=== PATIENT | female | born 1955 | race Caucasian/White ===

== ENCOUNTER → 2017-07-27 | Outpatient (CLI) | payer OTHER ==
[~2017-07-27] MED LIST: CYCL10TA PO; FLOM5CAP PO; OXYB5TAB10 PO; OXYC1TAB23 PO; VITMTA PO
--- NOTE | 2017-07-27 08:50 | REP ---
Clinical: Nephrolithiasis. Comparison: 07/01/2016. Findings: Evaluation for urinary tract calcification is limited due to technique and overlying bowel gas pattern. Intra renal and ureteral calcifications cannot be excluded. Calcifications identified within the pelvis remains stable and consistent with phleboliths. Bowel gas pattern is nonspecific. Skeletal structures demonstrate age-related degenerative changes. Impression: Limited evaluation for urinary tract calcifications. Consider noncontrast CT of the abdomen if necessary. Signed by Dre Mcgraw MD 07/27/2017 08:41 A
== END ==
LOC: M SMT 08:10
PROVIDERS: ATTEND Urology
DX: N20.0 Calculus of kidney (principal)

== ENCOUNTER 2017-10-09 11:28 | Emergency (ER) | payer OTHER | END 2017-10-09 16:18 | disposition home or self-care (01) | LOC: M ED 11:28 | DX: S50.02XA Contusion of left elbow, initial encounter (principal); S39.012A Strain of muscle, fascia and tendon of lower back, initial encounter; S06.0X0A Concussion without loss of consciousness, initial encounter; W00.1XXA Fall from stairs and steps due to ice and snow, initial encounter; Y92.009 Unspecified place in unspecified non-institutional (private) residence as the place of occurrence of the external cause; G47.33 Obstructive sleep apnea (adult) (pediatric); E66.9 Obesity, unspecified; Z88.1 Allergy status to other antibiotic agents; Z88.8 Allergy status to other drugs, medicaments and biological substances; Z88.2 Allergy status to sulfonamides; Z87.442 Personal history of urinary calculi | CPT/HCPCS: 73080 ==

== ENCOUNTER → 2018-02-23 | Outpatient (CLI) | payer OTHER, MEDICARE | LOC: M RAD 09:47 | DX: Z12.31 Encounter for screening mammogram for malignant neoplasm of breast (principal) ==

== ENCOUNTER 2018-06-01 10:21 | Day surgery (SDC) | payer MEDICARE, OTHER ==
[2018-06-01] MEDS: NS 1,000 ML IV (10:30)
[2018-06-01] MEDS ORDERED: PROPOFOL 200 MG/20 ML VIAL As Ordered (11:54)
[2018-06-01] MEDS ORDERED: LIDOCAINE 2% INJ 100 MG/5 ML SDV (FOR ANES.) As Ordered (11:54)
== END 2018-06-01 12:38 | disposition home or self-care (01) ==
LOC: M OPP 10:21
DX: Z12.11 Encounter for screening for malignant neoplasm of colon (principal); Z80.0 Family history of malignant neoplasm of digestive organs; Z86.010 Personal history of colon polyps; D12.3 Benign neoplasm of transverse colon; K57.30 Diverticulosis of large intestine without perforation or abscess without bleeding; Z78.0 Asymptomatic menopausal state; Z87.442 Personal history of urinary calculi; Z98.84 Bariatric surgery status; E66.9 Obesity, unspecified; Z85.828 Personal history of other malignant neoplasm of skin; Z88.1 Allergy status to other antibiotic agents; Z88.8 Allergy status to other drugs, medicaments and biological substances; Z88.2 Allergy status to sulfonamides
CPT/HCPCS: 45380

== ENCOUNTER → 2018-08-07 | Outpatient (CLI) | payer MEDICARE, OTHER | LOC: M SMT 09:45 | DX: N20.0 Calculus of kidney (principal) | CPT/HCPCS: 74018; G0463 ==

== ENCOUNTER → 2018-09-21 | Outpatient (REF) | payer MEDICARE, OTHER ==
[~2018-09-21] MED LIST changes: +ACET650S3 PO; +FLOM0.4C39 PO; -FLOM5CAP PO; +VITA200015 PO; +ZOFR4TAB14 PO
== END ==
LOC: M SFHCWAGY 10:12
PROVIDERS: ATTEND Nurse Practitioner Family
DX: Z12.4 Encounter for screening for malignant neoplasm of cervix (principal); N95.2 Postmenopausal atrophic vaginitis
CPT/HCPCS: G0101; G0123

== ENCOUNTER → 2019-05-02 | Outpatient (CLI) | payer MEDICARE, OTHER ==
[~2019-05-02] MED LIST changes: +E-Z-GAS II EFFERVESCENT PACKET (SODIUM BICARB./CITRIC ACID/SIMETHICONE) As Ordered ONE; +E-Z-HD 98% w/w 340GM SUSP BTL As Ordered ONE; +E-Z-PAQUE 96% w/w SUSP 176GM BTL As Ordered ONE
--- NOTE | 2019-05-03 14:23 | REP ---
Examination Requested: Upper G.I. Series With KUB Reason For Exam: Morbid obesity, dysphasia Upper GI Air Contrast The procedure was performed by MARTHA Kaye, under the direct supervision of Dr. Sahni. The images were reviewed with Dr. Sahni. The store mgr film shows no organomegaly or pathological masses. The intestinal gas pattern appears normal. The patient is status post a gastric band surgery. Liquid barium was given in the erect position as well as liquid barium in the prone oblique position in order to perform a double contrast upper GI examination. The oral and pharyngeal stages of deglutition were unremarkable. Esophageal transport is efficient and there is no esophagitis, stricture, or mucosal ring noted. However tertiary contractions were visualized throughout the exam. There is no hiatal hernia. Gastroesophageal reflux as visualized to the level of the radha. The stomach demonstrates postsurgical changes consistent with the patient's history of gastric banding. The stomach whitley are normally outlined. The rugal folds are smooth and regular. There is no gastritis, neoplasm, ulcer disease noted. The duodenal whitley are normally outlined. The mucosal folds are smooth and regular. There is no duodenitis, peptic ulcer disease, or neoplasm noted. The visualized portion of the proximal small bowel appears normal in course and caliber. Impression: 1. Tertiary contractions visualized throughout the exam. 2. Gastroesophageal reflux to the level of the radha 0.9 minutes of fluoroscopy time was utilized for this procedure. Some fluoroscopic images are performed with last image hold technology. These images require no additional radiation. Reviewed by MARTHA Aldrich 05/03/2019 02:01 P Electronically Signed by Connor Sahni MD 05/03/2019 02:15 P
== END ==
LOC: M RAD 07:50
PROVIDERS: ATTEND Surgery
DX: R13.10 Dysphagia, unspecified (principal); Z98.84 Bariatric surgery status; K21.9 Gastro-esophageal reflux disease without esophagitis

== ENCOUNTER → 2019-08-06 | Outpatient (CLI) | payer MEDICARE, OTHER ==
[~2019-08-06] MED LIST changes: -E-Z-GAS II EFFERVESCENT PACKET (SODIUM BICARB./CITRIC ACID/SIMETHICONE) As Ordered ONE; -E-Z-HD 98% w/w 340GM SUSP BTL As Ordered ONE; -E-Z-PAQUE 96% w/w SUSP 176GM BTL As Ordered ONE
--- NOTE | 2019-08-06 10:09 | REPPI ---
Clinical: Kidney stone. Technique: Two supine views of the abdomen and pelvis. Findings: Evaluation is somewhat limited due to overlying bowel gas pattern and presumed pelvic phleboliths. Small left intrarenal calculus measuring approximately 3 mm suggested. Further urinary tract calcifications cannot be excluded. Bowel gas pattern is nonspecific. Evidence for prior bariatric surgery. No organomegaly. Skeletal structures intact. Impression: Presumed 3 mm nonobstructing left renal calculus. Electronically Signed by Dre Mcgraw MD 08/06/2019 10:01 A
== END ==
LOC: M PLAIMG 09:47
PROVIDERS: ATTEND Nurse Practitioner Family
DX: N20.0 Calculus of kidney (principal)

== ENCOUNTER → 2019-10-05 | Outpatient (CLI) | payer MEDICARE, OTHER ==
--- NOTE | 2019-10-05 15:37 | REP ---
Chest and left rib series: Six views including PA chest. History: Rib contusion. Comparison chest x-ray: April 10, 2016. Findings: There is a lap band device in the left upper quadrant. The lungs are well inflated and clear. Pleural angles are sharp. Heart size is normal. There is no evidence of pneumothorax or hydrothorax. The aorta is somewhat tortuous. Multiple views of the left rib cage demonstrate no bony destructive lesion. No rib fracture is seen. Impression: Negative left rib radiographs. Electronically Signed by Hiro De La O MD 10/05/2019 06:40 P
== END ==
LOC: M WUC 11:16
PROVIDERS: ATTEND Physician Assistant
DX: S20.212A Contusion of left front wall of thorax, initial encounter (principal); W18.30XA Fall on same level, unspecified, initial encounter; Y92.9 Unspecified place or not applicable

== ENCOUNTER → 2020-11-12 | Outpatient (CLI) | payer MEDICARE, OTHER ==
[~2020-11-12] MED LIST changes: +CYCL-707 PO; -CYCL10TA PO
--- NOTE | 2020-11-12 10:16 | REPPI ---
INDICATION: KIDNEY STONES COMPARISON: 08/06/2019, 08/07/2018 TECHNIQUE: Supine view of the abdomen and pelvis. FINDINGS: Catheter again identified overlying the abdomen. Small bilateral intrarenal calculi measuring up to 6 mm in the right kidney and 4 mm in the left kidney are suspected and may warrant further investigation/correlation. The bowel gas pattern is nonspecific. Skeletal structures are grossly intact. Chronic stable calcifications in the pelvis consistent with phleboliths. IMPRESSION: Findings suggesting bilateral nephrolithiasis. <Electronically signed by Dre Mcgraw > 11/12/20 1014
[2020-11-12 17:45] LABS: APPEARANCE, URINE HAZY (CLEAR); BACTERIA, URINE AUTO 1+ (NEGATIVE); BILIRUBIN, URINE AUTO NEGATIVE (NEGATIVE); BLOOD, URINE BLOOD NEGATIVE (NEGATIVE); COLOR, URINE YELLOW (YELLOW); GLUCOSE, URINE (UA) AUTO NEGATIVE (NEGATIVE); KETONE, URINE AUTO NEGATIVE (NEGATIVE); LEUKOCYTE ESTERASE, URINE AUTO NEGATIVE (NEGATIVE); MUCUS, URINE SMALL (NEGATIVE); NITRITE, URINE AUTO NEGATIVE (NEGATIVE); PROTEIN, URINE AUTO NEGATIVE (NEGATIVE); RBC, URINE AUTO 0 /HPF (0-3); SPECIFIC GRAVITY URINE AUTO 1.011 (1.002-1.035); SQUAMOUS EPITHELIAL CELL UR AU 1 /HPF (0-6); UROBILINOGEN, URINE AUTO 0.2 mg/dL (0.0-2.0); WBC, URINE AUTO 1 /HPF (0-3)
== END ==
LOC: M PLAIMG 09:43
PROVIDERS: ATTEND Nurse Practitioner Family
DX: N20.0 Calculus of kidney (principal)
CPT/HCPCS: 74018; 81001; 87086; 88108; G0463

== ENCOUNTER → 2020-11-27 | Outpatient (CLI) | payer MEDICARE, OTHER ==
[~2020-11-27] MED LIST changes: +ISOVUE-370 76% 100ML VIAL As Ordered ONE
--- NOTE | 2020-11-27 11:19 | REP ---
INDICATION: GROSS HEMATURIA. COMPARISON: 05/03/2016 TECHNIQUE: Axial precontrast, contrast-enhanced and delayed images from the lung bases to the pubic symphysis using 100 cc Isovue 370 intravenous contrast material. Coronal and sagittal reformations obtained. Volume rendered 3D CT urogram created. This CT examination was performed using the following dose reduction techniques: Automated exposure control, adjustment of mA and/or kv according to the patient's size, and the use of iterative reconstruction technique. FINDINGS: There is a 9 mm nonobstructing calculus in the right renal pelvis along with 7 mm nonobstructing calculus in the upper pole left kidney. No hydroureteronephrosis, perinephric stranding, or obstructing ureteral calculus noted. Kidneys also demonstrate bilateral hypodensities which are most suggestive of simple and complex cyst including suspected complex cyst along the anterior margin of the right kidney measuring 2.5 cm. Liver, spleen, pancreas, and bilateral adrenal glands are normal. Cholelithiasis noted without acute cholecystitis. Patient is status post gastric banding procedure and there appears to be mild dilatation to the distal esophagus just above the gastric band. The small and large bowel is without obstruction or acute inflammatory process. Normal terminal ileum and appendix are identified in the right lower quadrant. Sigmoid diverticula noted without acute diverticulitis. Pelvis demonstrates normal bladder and age-appropriate uterus/adnexa. No ascites. No free air. No intraperitoneal or retroperitoneal adenopathy. Abdominal aorta and vasculature appear normal. Musculoskeletal structures are intact and without acute osseous abnormality. IMPRESSION: 1. Bilateral nonobstructing nephrolithiasis. 2. Renal hypodensities likely representing simple and complex cysts. A 2.5 cm structure along the anterior margin of the right kidney likely represents proteinaceous cyst. However, correlation with renal ultrasound may be warranted for confirmation. 3. Scattered colonic diverticula. 4. Cholelithiasis. 5. Status post gastric banding. <Electronically signed by Dre Mcgraw > 11/27/20 [id number]
== END ==
LOC: M RAD 10:10
PROVIDERS: ATTEND Nurse Practitioner Family
DX: R31.0 Gross hematuria (principal); N20.0 Calculus of kidney; K80.20 Calculus of gallbladder without cholecystitis without obstruction; Z98.84 Bariatric surgery status
CPT/HCPCS: 74178; Q9967

== ENCOUNTER → 2021-02-02 | Outpatient (CLI) | payer MEDICARE, OTHER ==
[~2021-02-02] MED LIST changes: -ISOVUE-370 76% 100ML VIAL As Ordered ONE; +VITAD400CA PO
--- NOTE | 2021-02-02 13:05 | REPPI ---
INDICATION: N20.0 KIDNEY STONES Z01.818 PREOP TESTING COMPARISON: 10/05/2019 TECHNIQUE: PA and lateral. FINDINGS: The mediastinum and cardiac silhouette are normal. The lung gan are clear and without acute consolidation, effusion, or pneumothorax. The skeletal structures are intact and normal. Prior gastric banding. IMPRESSION: No acute cardiopulmonary process. <Electronically signed by Dre Mcgraw > 02/02/21 1011
[2021-02-02 13:18] LABS: APPEARANCE, URINE HAZY (CLEAR); BACTERIA, URINE AUTO 1+ (NEGATIVE); BILIRUBIN, URINE AUTO NEGATIVE (NEGATIVE); BLOOD, URINE BLOOD 3+ (NEGATIVE); COLOR, URINE RED (YELLOW); GLUCOSE, URINE (UA) AUTO NEGATIVE (NEGATIVE); KETONE, URINE AUTO NEGATIVE (NEGATIVE); LEUKOCYTE ESTERASE, URINE AUTO NEGATIVE (NEGATIVE); MUCUS, URINE SMALL (NEGATIVE); NITRITE, URINE AUTO NEGATIVE (NEGATIVE); PROTEIN, URINE AUTO 1+ mg/dL (NEGATIVE); RBC, URINE AUTO TNTC /HPF (0-3); SPECIFIC GRAVITY URINE AUTO 1.005 (1.002-1.035); SQUAMOUS EPITHELIAL CELL UR AU 0 /HPF (0-6); UROBILINOGEN, URINE AUTO 0.2 mg/dL (0.0-2.0); WBC, URINE AUTO 10 /HPF (0-3)
[2021-02-02 13:21] LABS: HEMOGLOBIN 15.3 g/dl (12.0-15.5); MEAN CORPUSCULAR HEMOGLOBIN 30.4 pg (27.0-33.0); MEAN CORPUSCULAR HGB CONC 31.9 g/dl (32.0-36.5); MEAN CORPUSCULAR VOLUME 95.2 fl (80.0-96.0); PLATELET COUNT, AUTOMATED 291 10^3/uL (150-450); RED BLOOD COUNT 5.04 10^6/uL (4.00-5.40)
[2021-02-02 13:36] LABS: INR 0.97; PROTHROMBIN TIME 13.1 SECONDS (12.5-14.3)
[2021-02-02 13:37] LABS: PARTIAL THROMBOPLASTIN TIME 33.8 SECONDS (24.2-38.5)
[2021-02-02 13:50] LABS: BLOOD UREA NITROGEN 12 MG/DL (7-18); CALCIUM LEVEL 9.6 MG/DL (8.8-10.2); CARBON DIOXIDE LEVEL 30 MEQ/L (21-32); CHLORIDE LEVEL 106 MEQ/L (98-107); CREATININE FOR GFR 0.82 MG/DL (0.55-1.30); GLOMERULAR FILTRATION RATE > 60.0 (>45); GLUCOSE, FASTING 99 MG/DL (70-100); POTASSIUM SERUM 4.1 MEQ/L (3.5-5.1); SODIUM LEVEL 141 MEQ/L (136-145)
== END ==
LOC: M PLAIMG 09:47
PROVIDERS: ATTEND Nurse Practitioner Family
DX: Z01.818 Encounter for other preprocedural examination (principal); N20.0 Calculus of kidney

== ENCOUNTER → 2021-02-07 | Outpatient (CLI) | payer MEDICARE, OTHER | LOC: M LABSMTC 08:37 | PROVIDERS: ATTEND Anesthesiology | DX: Z01.812 Encounter for preprocedural laboratory examination (principal); Z11.52 Encounter for screening for COVID-19 ==

== ENCOUNTER 2021-02-12 07:02 | Day surgery (SDC) | payer MEDICARE, OTHER ==
[~2021-02-12] VITALS: Ht 160 cm; Wt 101.2 kg
[~2021-02-12 07:02] MED LIST changes: +LR 1,000 ML IV ONE; +ceFAZolin SOD 2 GM in IV 1 EA IV ONE
--- NOTE | 2021-02-12 08:09 | REP ---
INDICATION: KUB FOR PROCEDURE 6.3.21 COMPARISON: 11/12/2020 TECHNIQUE: Supine view of the abdomen and pelvis. FINDINGS: Bowel gas pattern is nonspecific and without obstruction or perforation. No organomegaly. Bilateral renal calcifications are identified (right greater than left). Phleboliths noted in the pelvis. Skeletal structures intact. IMPRESSION: Nephrolithiasis. Nonspecific bowel gas pattern. <Electronically signed by Dre Mcgraw > 02/12/21 0827
[2021-02-12] MEDS ORDERED: MIDAZOLAM INJ 2MG/2ML VIAL (J2250 PER 1MG) As Ordered ONE (09:40)
[2021-02-12] MEDS ORDERED: fentaNYL 100 MCG/2 ML INJECTION (J3010) As Ordered ONE (09:40)
[2021-02-12] MEDS ORDERED: propofoL 200 MG/20 ML VIAL As Ordered ONE ×2 (09:41→10:00)
[2021-02-12] MEDS ORDERED: LIDOCAINE 2% 100MG/5ML SDV (FOR ANES.) As Ordered ONE (09:41)
[2021-02-12] MEDS ORDERED: LIDOCAINE 2% 5ML JELLY UROJET As Ordered ONE (09:42)
[2021-02-12] MEDS ORDERED: OXYC1TAB23 PO (10:31)
[2021-02-12] MEDS ORDERED: FLOM0.4C39 PO (10:31)
--- NOTE | 2021-02-12 11:18 | RO ---
OPERATIVE NOTE DATE OF OPERATION: 02/12/2021 PREOPERATIVE DIAGNOSIS: Kidney stones, gross hematuria. POSTOPERATIVE DIAGNOSIS: Kidney stones, gross hematuria. PROCEDURE: Right extracorporeal shock wave lithotripsy, cystoscopy. SURGEON: Abdelrahman Vaughn MD APPLICATION SECURITY CONSULTANT: None. ANESTHESIA: MAC. OPERATIVE INDICATIONS: This is a 65-year-old female with history of kidney stones and on recent CT scan was found to have non-obstructing stones in both kidneys with one on the right measuring around 1 cm in size. She also had recent painless gross hematuria. She is brought to the operating room to investigate the hematuria and treat her kidney stone on the right side. DESCRIPTION OF PROCEDURE: The patient was brought to the operating room and MAC anesthesia was administered. Prophylactic antibiotics were infused. She was placed in the supine position and prepped and draped in usual sterile fashion first for cystoscopy. Flexible cystoscope inserted in the urethral meatus and advanced into the bladder. The bladder was thoroughly examined. No tumors were seen. No bladder stones were seen. There were no abnormalities seen inside the bladder. Both ureteral orifices were orthotopic and effluxing clear urine. Cystoscope was then removed. The patient was repositioned for extracorporeal shock wave lithotripsy on right side. Fluoroscopy was utilized to monitor stone position and fragmentation throughout the procedure. Shock waves were delivered to the right-sided kidney stone ungated. There were no arrhythmias. The stone did appear to fragment well. After 2500 shocks the procedure was concluded. The patient was awakened from anesthesia and transported to the recovery room in stable condition. ESTIMATED BLOOD LOSS: 0 mL. COMPLICATIONS: None. SPECIMEN: None. PLAN: No additional workup is required for the hematuria. It was likely related to her kidney stones. She will follow up in urology clinic in approximately 3-4 weeks with imaging prior to assess for residual stone burden. Assuming that the stone fragments on right side clears out well we will then focus on the left side with extracorporeal shock wave lithotripsy in a month or two.
[2021-02-12 11:35] VITALS: BP 158/80
== END 2021-02-12 11:35 | disposition home or self-care (01) ==
LOC: M SDC 07:02 → M RAD 07:02 → M SDC 11:35
PROVIDERS: ATTEND Urology
DX: N20.0 Calculus of kidney (principal); R31.0 Gross hematuria; Z88.2 Allergy status to sulfonamides; Z88.8 Allergy status to other drugs, medicaments and biological substances
CPT/HCPCS: 50590; 74018; J0690; J2250; J3010

== ENCOUNTER → 2021-03-02 | Outpatient (CLI) | payer MEDICARE, OTHER ==
[~2021-03-02] MED LIST changes: -LR 1,000 ML IV ONE; -ceFAZolin SOD 2 GM in IV 1 EA IV ONE
--- NOTE | 2021-03-02 10:45 | REPPI ---
INDICATION: N20.0 KIDNEY STONES. COMPARISON: Multiple FINDINGS: There is no significant change from the prior exam. There are bilateral pelvic phleboliths status quo. There are no new abnormal calcifications. Gastroesophageal banding is again noted. The intestinal gas pattern is nonspecific. There is no change in the osseous structures. IMPRESSION: Nonspecific.. Findings as described above. <Electronically signed by Kenneth Gomez > 03/02/21 1043
== END ==
LOC: M PLAIMG 09:38
PROVIDERS: ATTEND Nurse Practitioner Family
DX: N20.0 Calculus of kidney (principal)

== ENCOUNTER → 2021-03-05 | Outpatient (REF) | payer MEDICARE, OTHER | LOC: M SMT 13:02 | PROVIDERS: ATTEND Nurse Practitioner Family | DX: N20.0 Calculus of kidney (principal) ==

== ENCOUNTER → 2021-03-07 | Outpatient (CLI) | payer MEDICARE, OTHER | LOC: M LABSMTC 08:35 | PROVIDERS: ATTEND Anesthesiology | DX: Z01.818 Encounter for other preprocedural examination (principal); Z11.52 Encounter for screening for COVID-19 ==

== ENCOUNTER → 2021-03-09 | Outpatient (CLI) | payer MEDICARE, OTHER ==
[2021-03-09 13:17] LABS: HEMATOCRIT 46.9 % (36.0-47.0); HEMOGLOBIN 15.4 g/dl (12.0-15.5); MEAN CORPUSCULAR HEMOGLOBIN 30.7 pg (27.0-33.0); MEAN CORPUSCULAR HGB CONC 32.8 g/dl (32.0-36.5); MEAN CORPUSCULAR VOLUME 93.6 fl (80.0-96.0); PLATELET COUNT, AUTOMATED 296 10^3/uL (150-450); RED BLOOD COUNT 5.01 10^6/uL (4.00-5.40); WHITE BLOOD COUNT 8.9 10^3/uL (4.0-10.0)
[2021-03-09 13:27] LABS: INR 0.95; PROTHROMBIN TIME 12.9 SECONDS (12.5-14.3)
[2021-03-09 13:28] LABS: PARTIAL THROMBOPLASTIN TIME 32.3 SECONDS (24.2-38.5)
[2021-03-09 14:36] LABS: CALCIUM LEVEL 9.2 MG/DL (8.8-10.2); CREATININE FOR GFR 1.29 MG/DL (0.55-1.30); GLOMERULAR FILTRATION RATE 43.8 (>45)
== END ==
LOC: M PLALAB 10:50
PROVIDERS: ATTEND Nurse Practitioner Family
DX: N20.0 Calculus of kidney (principal); Z79.01 Long term (current) use of anticoagulants

== ENCOUNTER 2021-03-12 07:43 | Day surgery (SDC) | payer MEDICARE, OTHER ==
[~2021-03-12] VITALS: Ht 160 cm; Wt 100.2 kg
[~2021-03-12 07:43] MED LIST changes: +LR 1,000 ML IV ONE; +ceFAZolin SOD 2 GM in IV 1 EA IV ONE
--- NOTE | 2021-03-12 08:15 | REP ---
INDICATION: LEFT KIDNEY STONE KUB BEFORE SDC COMPARISON: 03/02/2021 TECHNIQUE: Supine view of the abdomen and pelvis. FINDINGS: Grouping of left intrarenal calculi measuring total 4.5 mm noted. Further evaluation of the urinary tract system is limited. Presumed phleboliths noted in the pelvis. Bowel gas pattern is nonspecific. Evidence for gastric banding. Skeletal structures intact. IMPRESSION: Nonobstructing left renal calculi. <Electronically signed by Dre Mcgraw > 03/12/21 [id number]
[2021-03-12] MEDS ORDERED: propofoL 200 MG/20 ML VIAL As Ordered ONE (10:20)
[2021-03-12] MEDS ORDERED: LIDOCAINE 2% 100MG/5ML SDV (FOR ANES.) As Ordered ONE (10:20)
[2021-03-12] MEDS ORDERED: MIDAZOLAM INJ 2MG/2ML VIAL (J2250 PER 1MG) As Ordered ONE (10:22)
[2021-03-12] MEDS ORDERED: fentaNYL 100 MCG/2 ML INJECTION (J3010) As Ordered ONE (10:22)
--- NOTE | 2021-03-12 11:27 | RO ---
OPERATIVE NOTE DATE OF OPERATION: 03/12/2021 PREOPERATIVE DIAGNOSIS: Left kidney stone. POSTOPERATIVE DIAGNOSIS: Left kidney stone. PROCEDURE: Left extracorporeal shock wave lithotripsy. SURGEON: Abdelrahman Vaughn MD METALLURGICAL ENGINEER: None. ANESTHESIA: MAC. OPERATIVE INDICATIONS: This is a 66-year-old female who was recently found to have bilateral kidney stones. She underwent right extracorporeal shock wave lithotripsy approximately one month ago. She also was found to have a 6 mm upper pole left kidney stone and was brought to the operating room today for treatment for that stone. DESCRIPTION OF PROCEDURE: The patient was brought to the operating room and MAC anesthesia was administered. Prophylactic antibiotics were infused. She was then placed in the supine position in preparation for left-sided extracorporeal shock wave lithotripsy. Fluoroscopy and ultrasonography were utilized to monitor stone position and fragmentation throughout the procedure. Shock waves were delivered to the left-sided kidney stone ungated. There were no arrhythmias. The stone did appear to fragment well. After 2500 shocks the procedure was concluded. The patient was awakened from anesthesia and transferred to the recovery room in stable condition. ESTIMATED BLOOD LOSS: 0 mL. COMPLICATIONS: None. SPECIMENS: None. PLAN: The patient will follow up in urology clinic in a few weeks with imaging prior to assess for residual stone burden.
[2021-03-12] MEDS ORDERED: PERCOCET 5MG/325MG TAB PO PRN (11:30)
[2021-03-12 12:05] VITALS: BP 141/96
== END 2021-03-12 12:05 | disposition home or self-care (01) ==
LOC: M SDC 07:43 → M RAD 07:43 → M SDC 12:05
PROVIDERS: ATTEND Urology
DX: N20.0 Calculus of kidney (principal); G47.30 Sleep apnea, unspecified; Z68.39 Body mass index [BMI] 39.0-39.9, adult; E66.01 Morbid (severe) obesity due to excess calories; N28.1 Cyst of kidney, acquired; Z88.1 Allergy status to other antibiotic agents; Z88.2 Allergy status to sulfonamides; Z88.8 Allergy status to other drugs, medicaments and biological substances; Z79.899 Other long term (current) drug therapy; Z98.84 Bariatric surgery status
CPT/HCPCS: 50590; 74018; J0690; J2250; J3010

== ENCOUNTER → 2021-03-18 | Outpatient (CLI) | payer MEDICARE, OTHER ==
[~2021-03-18] MED LIST changes: -LR 1,000 ML IV ONE; -ceFAZolin SOD 2 GM in IV 1 EA IV ONE
--- NOTE | 2021-03-18 10:35 | REPMRS ---
Patient History The patient states she has not had a clinical breast exam in over a year. Patient is postmenopausal and has history of other cancer. Family history of colorectal cancer at age 69 in mother, colorectal cancer at age 77 in father. Patient states no breast complaints today. Patient has signed MRS History Sheet. Digital Woman Screen Mammo: March 18, 2021 - Exam #: [id number] Bilateral CC and MLO view(s) were taken. Technologist: Justina Mckenna, Technologist Prior study comparison: February 23, 2018, bilateral digital mammo screening bilat, performed at [facility]. May 11, 2016, bilateral digital mammo screening bilat, performed at [facility]. September 22, 2015, left breast digital mammo diagnostic unilateral, performed at [facility]. March 10, 2015, digital woman screen mammo performed at [facility] and Breast [facility], [place]. FINDINGS: The breast tissue is almost entirely fat. The Volpara volumetric breast density category is: A. There has been no change in the appearance of the mammogram from the prior studies. There is no interval development of dominant mass, architectural distortion, or grouped microcalcification typical of malignancy. 3-D tomosynthesis shows no additional findings. Assessment: BI-RADS/ACR category 1 mammogram. Negative Mammogram. Recommendation Routine screening mammogram of both breasts in 1 year (for women over age 40). This patient's [facility] Lifetime Breast Cancer RIsk is estimated at 6.5 %. This mammogram was interpreted with the aid of an FDA-approved computer-aided dectection system. Electronically Signed By: Guillermo De La O MD 03/18/21 [id number]
== END ==
LOC: M WHC 09:29
PROVIDERS: ATTEND Internal Medicine
DX: Z12.31 Encounter for screening mammogram for malignant neoplasm of breast (principal)

== ENCOUNTER → 2021-04-01 | Outpatient (CLI) | payer MEDICARE, OTHER ==
--- NOTE | 2021-04-01 12:37 | REP ---
INDICATION: CALCULUS OF KIDNEY. COMPARISON: Comparison KUB 12 March 2021.. TECHNIQUE: Two views, supine abdomen. FINDINGS: There is a lap band device visible in the abdomen. Bowel gas pattern is otherwise normal. Phleboliths are noted in the pelvis. Tubal ligation bands are visible bilaterally in the pelvis as well. Psoas margins are symmetric. There is bowel gas over the right kidney. There is a small possibly calcific density projecting over the upper pole left kidney. This is improved from the March 12, 2021 study. no other evidence of urinary tract calculus is seen. IMPRESSION: A tiny 3 mm calcific density overlies the left kidney improved from a March 12, 2021. <Electronically signed by Guillermo De La O > 04/01/21 [id number]
== END ==
LOC: M PLAIMG 10:52 → M PLALAB 10:52
PROVIDERS: ATTEND Urology
DX: N20.0 Calculus of kidney (principal)

== ENCOUNTER → 2021-04-01 | Outpatient (CLI) | payer MEDICARE, OTHER ==
[2021-04-01 15:48] LABS: APPEARANCE, URINE CLEAR (CLEAR); BACTERIA, URINE AUTO NEGATIVE (NEGATIVE); BILIRUBIN, URINE AUTO NEGATIVE (NEGATIVE); BLOOD, URINE BLOOD NEGATIVE (NEGATIVE); COLOR, URINE YELLOW (YELLOW); GLUCOSE, URINE (UA) AUTO NEGATIVE (NEGATIVE); KETONE, URINE AUTO NEGATIVE (NEGATIVE); LEUKOCYTE ESTERASE, URINE AUTO NEGATIVE (NEGATIVE); MUCUS, URINE SMALL (NEGATIVE); NITRITE, URINE AUTO NEGATIVE (NEGATIVE); PROTEIN, URINE AUTO NEGATIVE (NEGATIVE); RBC, URINE AUTO 0 /HPF (0-3); SPECIFIC GRAVITY URINE AUTO 1.011 (1.002-1.035); SQUAMOUS EPITHELIAL CELL UR AU 1 /HPF (0-6); UROBILINOGEN, URINE AUTO 0.2 mg/dL (0.0-2.0); WBC, URINE AUTO 2 /HPF (0-3)
== END ==
LOC: M PLALAB 10:49
PROVIDERS: ATTEND Nurse Practitioner Family
DX: N39.0 Urinary tract infection, site not specified (principal)

== ENCOUNTER → 2021-06-10 | Outpatient (CLI) | payer MEDICARE, OTHER ==
[2021-06-10 14:01] LABS: BLOOD UREA NITROGEN 14 MG/DL (7-18); CALCIUM LEVEL 10.1 MG/DL (8.8-10.2); CARBON DIOXIDE LEVEL 32 MEQ/L (21-32); CHLORIDE LEVEL 105 MEQ/L (98-107); CREATININE FOR GFR 0.94 MG/DL (0.55-1.30); GLOMERULAR FILTRATION RATE > 60.0 (>45); GLUCOSE, FASTING 88 MG/DL (70-100); POTASSIUM SERUM 4.1 MEQ/L (3.5-5.1); SODIUM LEVEL 140 MEQ/L (136-145)
== END ==
LOC: M PLALAB 10:36
PROVIDERS: ATTEND Nurse Practitioner Family
DX: N28.1 Cyst of kidney, acquired (principal)

== ENCOUNTER → 2021-06-16 | Outpatient (CLI) | payer MEDICARE, OTHER ==
[~2021-06-16] MED LIST changes: +ISOVUE-370 76% 100ML VIAL As Ordered ONE
--- NOTE | 2021-06-16 11:56 | REP ---
INDICATION: COMPLEX RENAL CYST. COMPARISON: None TECHNIQUE: Axial precontrast, multiphasic enhanced, and delayed images of the abdomen obtained using 100 cc Isovue 370 intravenous contrast material with coronal and sagittal reformations. This CT examination was performed using the following dose reduction techniques: Automated exposure control, adjustment of mA and/or kv according to the patient's size, and the use of iterative reconstruction technique. FINDINGS: Liver, spleen/splenule, pancreas, and bilateral adrenal glands appear normal. Cholelithiasis noted without acute cholecystitis. Right kidney includes 2.5 cm and 1.8 cm lower pole suspected proteinaceous cysts along with few scattered subcentimeter cysts. Nonobstructing right intrarenal calculi measure up to approximately 4 mm without perinephric stranding or hydroureteronephrosis. Left kidney includes multiple subcentimeter hypodensities compatible with small cysts and 3 mm nonobstructing intrarenal calculus without perinephric stranding or hydroureteronephrosis. The patient is again noted to be status post gastric banding. Visualized portions of the small and large bowel are unremarkable. Few scattered colonic diverticula noted without acute diverticulitis.. No evidence for ascites. No free air. Abdominal aorta without aneurysm or dissection. Musculoskeletal structures are intact. IMPRESSION: 1. Right renal lesions likely representing benign proteinaceous cysts based on stable enhancement throughout the examination. Few simple cysts are also identified bilaterally as well as nonobstructing calculi noted above. 2. Cholelithiasis. <Electronically signed by Dre Mcgraw > 06/16/21 [id number]
== END ==
LOC: M RAD 10:28
PROVIDERS: ATTEND Nurse Practitioner Family
DX: N28.1 Cyst of kidney, acquired (principal); N20.0 Calculus of kidney; K80.20 Calculus of gallbladder without cholecystitis without obstruction
CPT/HCPCS: 74170; Q9967

== ENCOUNTER → 2022-06-11 | Outpatient (CLI) | payer MEDICARE, OTHER ==
[~2022-06-11] MED LIST changes: -ISOVUE-370 76% 100ML VIAL As Ordered ONE
[2022-06-11 13:50] LABS: HEMATOCRIT 48.6 % (36.0-47.0); HEMOGLOBIN 15.8 g/dl (12.0-15.5); MEAN CORPUSCULAR HEMOGLOBIN 30.5 pg (27.0-33.0); MEAN CORPUSCULAR HGB CONC 32.5 g/dl (32.0-36.5); MEAN CORPUSCULAR VOLUME 93.8 fl (80.0-96.0); PLATELET COUNT, AUTOMATED 276 10^3/uL (150-450); RED BLOOD COUNT 5.18 10^6/uL (4.00-5.40); WHITE BLOOD COUNT 8.3 10^3/uL (4.0-10.0)
[2022-06-11 14:12] LABS: HEMOGLOBIN A1c 5.1 %
[2022-06-11 14:48] LABS: ERYTHROCYTE SEDIMENTATION RATE 5 mm/hr (0-30)
[2022-06-11 14:58] LABS: C REACTIVE PROTEIN QUANTITATIV < 0.30 MG/DL (0.00-0.30); GLUCOSE,RANDOM 90 MG/DL (LESS THAN 200)
== END ==
LOC: M LAB 13:12
PROVIDERS: ATTEND Optometrist
DX: H53.2 Diplopia (principal); Z79.899 Other long term (current) drug therapy

== ENCOUNTER → 2022-07-02 | Outpatient (CLI) | payer MEDICARE, OTHER ==
[2022-07-02 11:07] LABS: BLOOD UREA NITROGEN 12 MG/DL (7-18); CREATININE FOR GFR 0.86 MG/DL (0.55-1.30); GLOMERULAR FILTRATION RATE > 60.0 (>45)
== END ==
LOC: M LAB 09:48
PROVIDERS: ATTEND Ophthalmology
DX: H49.02 Third [oculomotor] nerve palsy, left eye (principal)

== ENCOUNTER → 2022-07-05 | Outpatient (CLI) | payer MEDICARE, OTHER | LOC: M PLAIMG 09:27 | PROVIDERS: ATTEND Ophthalmology | DX: Z53.9 Procedure and treatment not carried out, unspecified reason (principal) ==

== ENCOUNTER → 2023-05-04 | Outpatient (CLI) | payer MEDICARE, OTHER | LOC: M WHC 09:51 | PROVIDERS: ATTEND Internal Medicine | DX: Z12.31 Encounter for screening mammogram for malignant neoplasm of breast (principal) ==

== ENCOUNTER → 2023-05-20 | Outpatient (CLI) | payer MEDICARE, OTHER | LOC: M LAB 17:22 | PROVIDERS: ATTEND Urology | DX: N28.1 Cyst of kidney, acquired (principal); N20.0 Calculus of kidney ==

== ENCOUNTER → 2023-05-21 | Outpatient (CLI) | payer MEDICARE, OTHER ==
[2023-05-21 11:55] LABS: BLOOD UREA NITROGEN 14 MG/DL (9-23); CALCIUM LEVEL 9.6 MG/DL (8.3-10.6); CARBON DIOXIDE LEVEL 30 MMOL/L (20-31); CHLORIDE LEVEL 106 MMOL/L (98-107); CREATININE FOR GFR 0.83 MG/DL (0.55-1.30); GLOMERULAR FILTRATION RATE > 60.0 (>39); GLUCOSE, FASTING 94 MG/DL (74-106); SODIUM LEVEL 144 MMOL/L (136-145)
== END ==
LOC: M LAB 09:47
PROVIDERS: ATTEND Urology
DX: N28.1 Cyst of kidney, acquired (principal); N20.0 Calculus of kidney

== ENCOUNTER → 2023-05-26 | Outpatient (CLI) | payer MEDICARE, OTHER ==
[~2023-05-26] MED LIST changes: +ISOVUE-370 76% 100ML VIAL As Ordered ONE
== END ==
LOC: M RAD 14:16
PROVIDERS: ATTEND Urology
DX: N28.1 Cyst of kidney, acquired (principal); N20.0 Calculus of kidney
CPT/HCPCS: 74178; Q9967

== ENCOUNTER → 2023-07-07 | Day surgery (SDC) | payer MEDICARE, OTHER ==
[~2023-07-07] VITALS: Ht 160 cm; Wt 99.8 kg
[~2023-07-07] MED LIST changes: -ISOVUE-370 76% 100ML VIAL As Ordered ONE; +LIDOCAINE 2% 100MG/5ML SDV (FOR ANES.) As Ordered ONE; +NS 1,000 ML IV ONE; -OXYB5TAB10 PO; +OXYB5TAB11 PO; +propofoL 200 MG/20 ML VIAL As Ordered ONE
[2023-07-07 11:04] VITALS: TEMP 98
[2023-07-07 11:33] VITALS: BP 130/92; O2SAT 95
== END | disposition home or self-care (01) ==
LOC: M OPP 09:42
PROVIDERS: ATTEND Surgery
DX: Z86.010 Personal history of colon polyps (principal); Z80.0 Family history of malignant neoplasm of digestive organs; K57.30 Diverticulosis of large intestine without perforation or abscess without bleeding; Z85.828 Personal history of other malignant neoplasm of skin; Z98.84 Bariatric surgery status; Z88.2 Allergy status to sulfonamides; Z88.8 Allergy status to other drugs, medicaments and biological substances; Z79.899 Other long term (current) drug therapy

== ENCOUNTER 2024-03-03 20:27 | Emergency (ER) | payer MEDICARE, OTHER ==
[~2024-03-03] VITALS: Ht 160 cm; Wt 101.4 kg
[~2024-03-03 20:27] MED LIST changes: -LIDOCAINE 2% 100MG/5ML SDV (FOR ANES.) As Ordered ONE; -NS 1,000 ML IV ONE; -OXYB5TAB11 PO; +OXYB5TAB14 PO; -propofoL 200 MG/20 ML VIAL As Ordered ONE
[2024-03-03 20:28] VITALS: TEMP 97.5
[2024-03-03 21:12] LABS: BASO # 0.1 10^3/uL (0.0-0.2); BASO % 0.9 % (0.0-1.0); EOS # 0.2 10^3/uL (0.0-0.5); EOS % 2.8 % (0.0-3.0); HEMATOCRIT 48.4 % (36.0-47.0); HEMOGLOBIN 16.2 g/dl (12.0-15.5); LYMPH # 2.4 10^3/uL (1.5-5.0); LYMPH % 29.4 % (24.0-44.0); MEAN CORPUSCULAR HEMOGLOBIN 31.5 pg (27.0-33.0); MEAN CORPUSCULAR HGB CONC 33.5 g/dl (32.0-36.5); MEAN CORPUSCULAR VOLUME 94.2 fl (80.0-96.0); MONO # 0.6 10^3/uL (0.0-0.8); MONO % 7.7 % (2.0-8.0); NEUTROPHILS # 4.8 10^3/uL (1.5-8.5); PLATELET COUNT, AUTOMATED 241 10^3/uL (150-450); RED BLOOD COUNT 5.14 10^6/uL (4.00-5.40); WHITE BLOOD COUNT 8.2 10^3/uL (4.0-10.0)
[2024-03-03 21:27] LABS: ALBUMIN 3.8 G/DL (3.2-5.2); ALKALINE PHOSPHATASE 135 U/L (46-116); ALT/SGPT 27 U/L (7.0-40); AST/SGOT 29 U/L (<34); BILIRUBIN,DIRECT < 0.1 MG/DL (<0.4); BILIRUBIN,TOTAL 0.3 MG/DL (0.3-1.2); BLOOD UREA NITROGEN 19 MG/DL (9-23); CALCIUM LEVEL 9.8 MG/DL (8.3-10.6); CARBON DIOXIDE LEVEL 23 MMOL/L (20-31); CHLORIDE LEVEL 108 MMOL/L (98-107); CREATININE FOR GFR 0.85 MG/DL (0.55-1.30); GLOMERULAR FILTRATION RATE > 60.0 (>39); GLUCOSE, FASTING 112 MG/DL (74-106); LIPASE 31 U/L (12-53); POTASSIUM SERUM 4.1 MMOL/L (3.5-5.1); SODIUM LEVEL 139 MMOL/L (136-145); TOTAL PROTEIN 7.7 G/DL (5.7-8.2)
[2024-03-03] MEDS: ONDANSETRON 4MG 2ML VIAL IV ONE (22:13)
[2024-03-03] MEDS: KETOROLAC 30 MG/ML 1ML VIAL IV ONE (22:13)
[2024-03-03 23:11] VITALS: BP 180/90; O2SAT 98
[2024-03-04] MEDS ORDERED: FLOM0.4C39 PO (01:49)
[2024-03-04] MEDS ORDERED: KETO10TAB PO (01:49)
[2024-03-04] MEDS ORDERED: CIPR-249 PO (01:50)
[2024-03-04] MEDS: TAMSULOSIN 0.4 MG CAP PO ONE (02:00)
[2024-03-04] MEDS: OXYCODONE/APAP 5MG/325MG(HOME DOSE PACK) PO ONE (02:01)
[2024-03-06] MEDS ORDERED: CEFD300C PO (08:31)
== END 2024-03-04 02:10 | disposition home or self-care (01) ==
LOC: M ED 20:27
DX: N20.1 Calculus of ureter (principal); Z88.2 Allergy status to sulfonamides; Z88.8 Allergy status to other drugs, medicaments and biological substances; Z79.2 Long term (current) use of antibiotics; Z79.810 Long term (current) use of selective estrogen receptor modulators (SERMs); Z79.899 Other long term (current) drug therapy
CPT/HCPCS: 74176; 80048; 80076; 81001; 83690; 85025; 87088; 87186; 96374; 99283; J1885; J2405

== ENCOUNTER → 2024-05-28 | Outpatient (CLI) | payer MEDICARE, OTHER ==
[~2024-05-28] MED LIST changes: +CEFD300C PO; +CIPR-249 PO; +KETO10TAB PO
[2024-05-28 11:30] LABS: BLOOD UREA NITROGEN 13 MG/DL (9-23); CALCIUM LEVEL 9.7 MG/DL (8.3-10.6); CARBON DIOXIDE LEVEL 32 MMOL/L (20-31); CHLORIDE LEVEL 104 MMOL/L (98-107); CREATININE FOR GFR 0.88 MG/DL (0.55-1.30); GLOMERULAR FILTRATION RATE > 60.0 (>39); GLUCOSE, FASTING 96 MG/DL (74-106); SODIUM LEVEL 141 MMOL/L (136-145)
== END ==
LOC: M LAB 10:06
PROVIDERS: ATTEND Urology
DX: N28.1 Cyst of kidney, acquired (principal)

== ENCOUNTER → 2024-05-31 | Outpatient (CLI) | payer MEDICARE, OTHER ==
[~2024-05-31] MED LIST changes: +ISOVUE-370 76% 100ML VIAL ONE
== END ==
LOC: M PLAIMG 08:58
PROVIDERS: ATTEND Urology
DX: N20.0 Calculus of kidney (principal)
CPT/HCPCS: 74178; Q9967

== ENCOUNTER → 2024-08-01 | Outpatient (CLI) | payer MEDICARE, OTHER ==
[~2024-08-01] MED LIST changes: -ISOVUE-370 76% 100ML VIAL ONE
== END ==
LOC: M WHC 10:51
PROVIDERS: ATTEND Internal Medicine
DX: Z12.31 Encounter for screening mammogram for malignant neoplasm of breast (principal)

== ENCOUNTER → 2025-01-09 | Outpatient (CLI) | payer MEDICARE, OTHER ==
[~2025-01-09] MED LIST changes: -FLOM0.4C39 PO; +TAMS-18 PO
== END ==
LOC: M WHC 08:11
PROVIDERS: ATTEND Nurse Practitioner Family
DX: N64.3 Galactorrhea not associated with childbirth (principal); N63.10 Unspecified lump in the right breast, unspecified quadrant

== ENCOUNTER 2025-02-28 07:13 | Day surgery (SDC) | payer MEDICARE, OTHER ==
[~2025-02-28] VITALS: Ht 160 cm; Wt 99.3 kg
[~2025-02-28 07:13] MED LIST changes: +AMLO1TAB24 PO; +ceFAZolin SOD 2 GM IV ONCE IV ONE
[2025-02-28] MEDS ORDERED: LIDOCAINE 1% MDV 20 ML VIAL As Ordered ONE (08:05)
[2025-02-28] MEDS: LR 1,000 ML IV SCH (08:08)
[2025-02-28] MEDS ORDERED: MIDAZOLAM INJ 2 MG/2 ML VIAL As Ordered ONE (09:39)
[2025-02-28] MEDS ORDERED: fentaNYL 100 MCG/2 ML INJECTION As Ordered ONE (09:40)
[2025-02-28] MEDS ORDERED: LIDOCAINE 2% 100 MG/5 ML SDV (FOR ANES.) As Ordered ONE (09:41)
[2025-02-28] MEDS ORDERED: ESMOLOL 100 MG/10 ML VIAL As Ordered ONE (09:54)
[2025-02-28] MEDS ORDERED: ONDANSETRON 4MG 2ML VIAL As Ordered ONE (09:56)
[2025-02-28] MEDS ORDERED: dexAMETHasone 4 MG/ML 1 ML VIAL As Ordered ONE (09:56)
[2025-02-28] MEDS ORDERED: propofoL 200 MG/20 ML VIAL As Ordered ONE (10:01)
[2025-02-28] MEDS ORDERED: ACETAMINOPHEN 1000MG/100ML IV BAG As Ordered ONE (10:01)
[2025-02-28] MEDS ORDERED: fentaNYL 100 MCG/2 ML INJECTION IV PRN (11:35)
[2025-02-28] MEDS: ONDANSETRON 4MG 2ML VIAL IV PRN (12:01)
[2025-02-28] MEDS ORDERED: OXYC-1 PO (12:09)
[2025-02-28] MEDS: HYDROMORPHONE HCL 0.5 MG/0.5 ML SYRINGE IV PRN (12:12)
[2025-02-28] MEDS: oxyCODONE 5MG TAB PO PRN (12:18)
[2025-02-28 13:31] VITALS: BP 148/80; TEMP 97.5; O2SAT 96
== END 2025-02-28 14:06 | disposition home or self-care (01) ==
LOC: M SDC 07:13 → EDSTATUS 09:30 → M SDC 14:06
PROVIDERS: ATTEND Surgery
DX: D24.1 Benign neoplasm of right breast (principal); N60.41 Mammary duct ectasia of right breast; G47.30 Sleep apnea, unspecified; Z88.8 Allergy status to other drugs, medicaments and biological substances; Z88.1 Allergy status to other antibiotic agents; Z79.899 Other long term (current) drug therapy
CPT/HCPCS: 19125; 76000; 76942; 88305; 88307; J0131; J1100; J1171; J1805; J2250; J2405; J3010

== ENCOUNTER → 2025-04-15 | Outpatient (CLI) | payer MEDICARE, OTHER ==
[~2025-04-15] MED LIST changes: +OXYC-1 PO; -ceFAZolin SOD 2 GM IV ONCE IV ONE
== END ==
LOC: M WHC 12:50
PROVIDERS: ATTEND Surgery
DX: Z48.89 Encounter for other specified surgical aftercare (principal); R92.321 Mammographic fibroglandular density, right breast
CPT/HCPCS: 77065; G0279

== ENCOUNTER → 2025-05-20 | Outpatient (CLI) | payer MEDICARE, OTHER | LOC: M PLALAB 14:40 | PROVIDERS: ATTEND Urology | DX: N20.0 Calculus of kidney (principal) ==